=== PATIENT | male | born 1980 | race Caucasian/White ===

== ENCOUNTER 2018-12-29 08:38 | Outpatient (CLI) | payer BC, SELFPAY ==
--- NOTE | 2018-12-29 14:35 | W.PREOPHP ---
Documented by User: SOCORRO Greene 12/29/18 15:35 Date of service: 12/29/18 Time of Service: 08:36 Assessment and Plan (1) H/O arthroscopy of knee: Current visit: Yes Status: Resolved (2) Lateral Retinacular Release, Open: Current visit: Yes Status: Resolved (3) Right knee pain: Current visit: Yes Status: Acute The patient will undergo a diagnostic arthroscopy with likely meniscal root repair on 01/04/2019. A brief overview of the surgical procedure was again reviewed with Michell and his . 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 He notes an inability to twist on a planted foot with an inability to run that involves any cutting that makes it very difficult to perform his job activities. He notes pain with any squatting or any kneeling with decreased range of motion of his knee at the end of the day secondary to swelling. He also notes difficulty going down stairs and climbing hills. He has had injective therapy in the past that provided very limited relief may be 3 weeks. An MRI has been done which shows his ACL to be beat up with his lateral meniscal root insertion looking irregular and unstable. Dr. Quach has advised a diagnostic arthroscopy with a likely meniscal root repair of his lateral meniscus in this patient with a very elevated BMI Pertinent Surgical Information Denies previous medical history of: stroke, TIA, [place], use of sublingual nitroglycerin, GERD, seizures, diabetes, thyroid disease, sleep apnea, liver disease, hepatitis, hematologic disorders Denies previous complications from surgery or anesthesic agents with respect to high fever, prolonged vomiting and difficulty waking up Review of Systems Constitutional Denies fever(s) and Denies headache(s) ENT Denies headache(s), Denies nasal congestion, Denies nasal discharge and Denies sore throat Cardiovascular Denies chest pain, Denies chest pain with activity, Denies palpitations, Denies dyspnea on exertion, Denies orthopnea and Denies paroxysmal nocturnal dyspnea Respiratory Denies cough, Denies excessive phlegm production, Denies pain on inspiration, Denies dyspnea on exertion and Denies wheezing Gastrointestinal Denies abdominal pain, Denies melena, Denies hematochezia, Denies nausea and Denies vomiting Genitourinary Denies hematuria, Denies dysuria and Denies urinary frequency Comments: Denies burning sensation with urination Musculoskeletal Reports as per HPI Neurologic Denies headache(s) Psychiatric Denies anxiety and Denies depression Endocrine Denies palpitations Comments: Denies any unplanned weight changes Allergic/Immunologic Denies wheezing PFSH Medical History Body mass index (BMI) greater than or equal to 40 in adult (Chronic) ACL tear Diverticulitis large intestine w/o perforation or abscess w/o bleeding Seasonal allergies Surgical History H/O arthroscopy of knee (Resolved) Lateral Retinacular Release, Open (Resolved) Repair, ACL (Resolved) Colonoscopy - MAC (01/26/17) Family History Grandmother Diabetes Essential hypertension Heart disease Grandmother Diabetes Social History Smoking/Tobacco Use Status: Never Alcohol Intake: current Alcohol Intake frequency: a few times a month Details: light-mod,few /month Drug use: Never Substance use type: does not use Adopted: No Caregiver/Support person: Yes Household members: spouse Duration: 30-45 minutes/day Frequency: 1-2 times per week Special an needs: No Do you feel safe in your relationship?: Yes Meds Allergies Allergy/AdvReac Type Severity Reaction Status Date / Time sertraline AdvReac Intermediate Skin Rash Verified 12/29/18 08:49 DUST Allergy Intermediate Uncoded 12/29/18 08:49 Exam Const General: cooperative HENPA Throat: posterior oropharynx normal Eyes General: appearance normal, both eyes and all related structures Conjunctivae: conjunctivae normal Sclera: sclerae normal Neck Neck: no JVD Carotids: normal carotid upstroke and no bruits Resp Effort & Inspection: normal respiratory effort and able to speak in complete sentences Auscultation: clear to auscultation bilaterally, no rales, no rhonchi and no wheezes Cardio Rate: regular rate Heart Sounds: S1 normal, S2 normal and no murmurs Bruits: no abdominal aortic bruits GI Palpation: soft and no hepatosplenomegaly Auscultation: normal bowel sounds General: No CVA tenderness Extrem General: no pedal edema Other: right knee shows posterolateral tenderness to palpation.full extension intact with flexion to 110 degrees this early in day before swelling has begun to occurwith no large effusion evident yet. Documented by User: James Quach MD 12/31/18 08:10 PFSH Medical History Body mass index (BMI) greater than or equal to 40 in adult (Chronic) ACL tear Diverticulitis large intestine w/o perforation or abscess w/o bleeding Seasonal allergies Surgical History H/O arthroscopy of knee (Resolved) Lateral Retinacular Release, Open (Resolved) Repair, ACL (Resolved) Colonoscopy - MAC (01/26/17) Family History Grandmother Diabetes Essential hypertension Heart disease Grandmother Diabetes Social History Smoking/Tobacco Use Status: Never Alcohol Intake: current Alcohol Intake frequency: a few times a month Details: light-mod,few /month Drug use: Never Substance use type: does not use Adopted: No Caregiver/Support person: Yes Household members: spouse Duration: 30-45 minutes/day Frequency: 1-2 times per week Special an needs: No Do you feel safe in your relationship?: Yes Meds Allergies Allergy/AdvReac Type Severity Reaction Status Date / Time sertraline AdvReac Intermediate Skin Rash Verified 12/29/18 08:49 DUST Allergy Intermediate Uncoded 12/29/18 08:49
--- NOTE | 2018-12-29 15:22 | HPE_ITS ---
Documented by User: SOCORRO Greene 12/29/18 15:35 Date of service: 12/29/18 Time of Service: 08:36 Assessment and Plan (1) H/O arthroscopy of knee: Current visit: Yes Status: Resolved (2) Lateral Retinacular Release, Open: Current visit: Yes Status: Resolved (3) Right knee pain: Current visit: Yes Status: Acute The patient will undergo a diagnostic arthroscopy with likely meniscal root repair on 01/04/2019. A brief overview of the surgical procedure was again reviewed with Michell and his . 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 He notes an inability to twist on a planted foot with an inability to run that involves any cutting that makes it very difficult to perform his job activities. He notes pain with any squatting or any kneeling with decreased range of motion of his knee at the end of the day secondary to swelling. He also notes difficulty going down stairs and climbing hills. He has had injective therapy in the past that provided very limited relief may be 3 weeks. An MRI has been done which shows his ACL to be beat up with his lateral meniscal root insertion looking irregular and unstable. Dr. Quach has advised a diagnostic arthroscopy with a likely meniscal root repair of his lateral meniscus in this patient with a very elevated BMI Pertinent Surgical Information Denies previous medical history of: stroke, TIA, [place], use of sublingual nitroglycerin, GERD, seizures, diabetes, thyroid disease, sleep apnea, liver disease, hepatitis, hematologic disorders Denies previous complications from surgery or anesthesic agents with respect to high fever, prolonged vomiting and difficulty waking up Review of Systems Constitutional Denies fever(s) and Denies headache(s) ENT Denies headache(s), Denies nasal congestion, Denies nasal discharge and Denies sore throat Cardiovascular Denies chest pain, Denies chest pain with activity, Denies palpitations, Denies dyspnea on exertion, Denies orthopnea and Denies paroxysmal nocturnal dyspnea Respiratory Denies cough, Denies excessive phlegm production, Denies pain on inspiration, Denies dyspnea on exertion and Denies wheezing Gastrointestinal Denies abdominal pain, Denies melena, Denies hematochezia, Denies nausea and Denies vomiting Genitourinary Denies hematuria, Denies dysuria and Denies urinary frequency Comments: Denies burning sensation with urination Musculoskeletal Reports as per HPI Neurologic Denies headache(s) Psychiatric Denies anxiety and Denies depression Endocrine Denies palpitations Comments: Denies any unplanned weight changes Allergic/Immunologic Denies wheezing PFSH Medical History Body mass index (BMI) greater than or equal to 40 in adult (Chronic) ACL tear Diverticulitis large intestine w/o perforation or abscess w/o bleeding Seasonal allergies Surgical History H/O arthroscopy of knee (Resolved) Lateral Retinacular Release, Open (Resolved) Repair, ACL (Resolved) Colonoscopy - MAC (01/26/17) Family History Grandmother Diabetes Essential hypertension Heart disease Grandmother Diabetes Social History Smoking/Tobacco Use Status: Never Alcohol Intake: current Alcohol Intake frequency: a few times a month Details: light-mod,few /month Drug use: Never Substance use type: does not use Adopted: No Caregiver/Support person: Yes Household members: spouse Duration: 30-45 minutes/day Frequency: 1-2 times per week Special an needs: No Do you feel safe in your relationship?: Yes Meds Allergies Allergy/AdvReac Type Severity Reaction Status Date / Time sertraline AdvReac Intermediate Skin Rash Verified 12/29/18 08:49 DUST Allergy Intermediate Uncoded 12/29/18 08:49 Exam Const General: cooperative HENWV Throat: posterior oropharynx normal Eyes General: appearance normal, both eyes and all related structures Conjunctivae: conjunctivae normal Sclera: sclerae normal Neck Neck: no JVD Carotids: normal carotid upstroke and no bruits Resp Effort & Inspection: normal respiratory effort and able to speak in complete sentences Auscultation: clear to auscultation bilaterally, no rales, no rhonchi and no wheezes Cardio Rate: regular rate Heart Sounds: S1 normal, S2 normal and no murmurs Bruits: no abdominal aortic bruits GI Palpation: soft and no hepatosplenomegaly Auscultation: normal bowel sounds General: No CVA tenderness Extrem General: no pedal edema Other: right knee shows posterolateral tenderness to palpation.full extension intact with flexion to 110 degrees this early in day before swelling has begun to occurwith no large effusion evident yet. Documented by User: James Quach MD 12/31/18 08:10 PFSH Medical History Body mass index (BMI) greater than or equal to 40 in adult (Chronic) ACL tear Diverticulitis large intestine w/o perforation or abscess w/o bleeding Seasonal allergies Surgical History H/O arthroscopy of knee (Resolved) Lateral Retinacular Release, Open (Resolved) Repair, ACL (Resolved) Colonoscopy - MAC (01/26/17) Family History Grandmother Diabetes Essential hypertension Heart disease Grandmother Diabetes Social History Smoking/Tobacco Use Status: Never Alcohol Intake: current Alcohol Intake frequency: a few times a month Details: light-mod,few /month Drug use: Never Substance use type: does not use Adopted: No Caregiver/Support person: Yes Household members: spouse Duration: 30-45 minutes/day Frequency: 1-2 times per week Special an needs: No Do you feel safe in your relationship?: Yes Meds Allergies Allergy/AdvReac Type Severity Reaction Status Date / Time sertraline AdvReac Intermediate Skin Rash Verified 12/29/18 08:49 DUST Allergy Intermediate Uncoded 12/29/18 08:49
== END 2018-12-29 08:58 ==
PROVIDERS: PCP Emergency Medicine; Visit Provider Student in an Organized Health Care Education/Training Program
DX: Z01.818 Encounter for other preprocedural examination (principal)

== ENCOUNTER 2019-01-04 07:47 | Day surgery (SDC) | payer BC, SELFPAY ==
[2019-01-04 08:04] VITALS: BP 147/71; PULSE 65; RESP 18; TEMP 36.7; O2SAT 96
[2019-01-04] MEDS: Lactated Ringers 1,000 ML 80 ML IV (08:56)
[2019-01-04] MEDS: Gabapentin 300 MG CAP PO (09:24)
[2019-01-04] MEDS: Acetaminophen 500 MG TAB 1000 MG PO (09:24)
[2019-01-04] MEDS: oxyCODONE-CR 10 MG TABCR PO (09:24)
[2019-01-04] MEDS: Celecoxib 200 MG CAP 400 MG PO (09:24)
[2019-01-04] MEDS: Bupivacaine 0.5% Pres-Free 30 ML VIAL (11:00)
[2019-01-04 11:15] VITALS: BP 146/79; PULSE 72; RESP 24; TEMP 36.7; O2SAT 95
[2019-01-04 11:20] VITALS: BP 158/79; PULSE 66; RESP 14; TEMP 36.7; O2SAT 93
[2019-01-04 11:25] VITALS: BP 163/74; PULSE 67; RESP 13; TEMP 36.7; O2SAT 92
--- NOTE | 2019-01-04 11:30 | W.PM.DSUDISC ---
Discharge Plan Disposition Patient Disposition: HOME Condition: Good Discharge Details Reason For Visit: (R) KNEE MENISCUS TEAR Attending Provider: James Quach Primary Care Provider: Rick Jules Home Meds and New Rx's Prescriptions: New acetaminophen 500 mg tablet 1,000 mg PO Q8H PRN (Reason: pain) Qty: 90 RF: 3 ibuprofen 600 mg tablet 600 mg PO TID PRNQty: 90 RF: 3 oxycodone 5 mg tablet 5 mg PO Q4H Qty: 12 RF: 0 Discontinued hydrocodone-acetaminophen 5-325 mg tablet 1 tab PO DAILY PRN MDD 5mg PRN (Reason: pain) Qty: 10 RF: 0 Discharge Instructions Stand Alone Forms: [facility]th[facility] Referrals: James Quach MD [ [facility] - Equipment/Supplies: Partial Weight Bearing Crutches Activity:: Elevate Remove Dressings/Wound Care:: 72 hours Shower/Bathe:: 72 hours Diet:: As Tolerated Discharge Orders Discharge Orders: Discharge Order (Routine); Ordered 01/04/19 Ordered By: James Quach DS: Diagnosis Discharge Diagnosis (1) Chondromalacia, right knee: Status: Acute
--- NOTE | 2019-01-04 11:34 | PDOC.DSDIS_ITS ---
Discharge Plan Disposition Patient Disposition: HOME Condition: Good Discharge Details Reason For Visit: (R) KNEE MENISCUS TEAR Attending Provider: James Quach Primary Care Provider: Rick Jules Home Meds and New Rx's Prescriptions: New acetaminophen 500 mg tablet 1,000 mg PO Q8H PRN (Reason: pain) Qty: 90 RF: 3 ibuprofen 600 mg tablet 600 mg PO TID PRNQty: 90 RF: 3 oxycodone 5 mg tablet 5 mg PO Q4H Qty: 12 RF: 0 Discontinued hydrocodone-acetaminophen 5-325 mg tablet 1 tab PO DAILY PRN MDD 5mg PRN (Reason: pain) Qty: 10 RF: 0 Discharge Instructions Stand Alone Forms: [facility] Referrals: James Quach MD [ [facility] STAFF PHYSICIAN] - Equipment/Supplies: Partial Weight Bearing Crutches Activity:: Elevate Remove Dressings/Wound Care:: 72 hours Shower/Bathe:: 72 hours Diet:: As Tolerated Discharge Orders Discharge Orders: Discharge Order (Routine); Ordered 01/04/19 Ordered By: James Quach DS: Diagnosis Discharge Diagnosis (1) Chondromalacia, right knee: Status: Acute
[2019-01-04 11:39] VITALS: BP 143/84; PULSE 69; RESP 14; TEMP 36.5; O2SAT 94
[2019-01-04 12:24] VITALS: BP 130/79; PULSE 65; RESP 16; TEMP 35.6; O2SAT 94
[2019-01-04] MEDS: oxyCODONE 5 MG TAB PO (12:43)
--- NOTE | 2019-01-05 07:50 | ROE_ITS ---
Date of service: 01/04/19 Time of Service: 14:45 Operative Note DATE OF PROCEDURE: 01/04/19 PRE-OP DIAGNOSIS: Right knee medial meniscal tear POST-OP DIAGNOSIS: other (Right knee chondromalacia with loose cartilage flaps) PROCEDURE: Right knee arthroscopic chondroplasty of the medial compartment SURGEON: James Quach ANESTHESIA: GETA ESTIMATED BLOOD LOSS: 0 PATHOLOGY: none sent COMPLICATIONS: None Patient was transported to: PACU Patient's condition: stable Indications: I have seen Danny in clinic for symptoms of a meniscus tear. There appeared to be some tearing of the meniscal root on MRI without overwhelming signs of arthritic change. Nonoperative measures were exhausted but disability and pain persisted. I discussed knee arthroscopy with meniscal intervention with the patient. I reviewed the risks of the procedure to include, but not limited to, bleeding, infection, pain, stiffness, damage to nerves or vessels, recurrence, blood clot. Despite these risks, the patient elected to proceed. Findings: A diagnostic arthroscopy was performed with the following findings: Suprapatellar Pouch: No significant inflammation, no loose bodies Medial Compartment: No meniscal tear, intact meniscal root, grade IV chondromalacia over the medial half of the distal femur with loose cartilage flaps which were easily displaceable, fissuring of the tibial cartilage surface with grade II chondromalacia otherwise Notch: ACL and PCL were intact Lateral Compartment: No meniscal tear, intact meniscal root, some areas of grade I/II chondromalacia but overall no significant global change, no loose bodies Patellofemoral Compartment: Grade IV chondromalacia within the trochlea and grade II over the patellar apex, no apparent patellar maltracking Procedure Description: Danny was greeted in the preoperative holding area where the correct side was identified and marked. The consent was reviewed with the patient and signed. The history and physical was updated. All questions were answered. Danny was taken back to the operating room. The patient was placed into the supine position on the operating room table. A nonsterile tourniquet was placed high onto the leg but not used. All bony prominences were well padded. Prophylactic antibiotics in the form of cefazolin were administered. The right leg was then prepped with Chloraprep and draped in a standard fashion with stockinette and extremity drape. A timeout to confirm correct identity, side and site, procedure, allergies, anesthesia, and medical concerns was performed. The leg was placed into a pneumatic leg mason, [id number]. A standard lateral portal was made at the lateral border of the patella tendon in line with the inferior pole of the patella, soft spot. The skin and deep tissue was incised sharply and the blunt trochar was inserted atraumatically. A diagnostic arthroscopy was performed and the findings are listed above. The suprapatellar pouch had no significant inflammatory change. The patellofemoral articulation showed severe damage to the trochlea with grade IV chondromalacia, exposed bone, within the central portion of the trochlea. There was good tracking but also some grade II chondromalacia over the patellar apex. The lateral gutter had no loose bodies and the medial gutter had no loose bodies. The knee was brought into some valgus stress in extension to open the medial compartment. A medial portal was made, localized by a spinal needle. The portal was created with an # 11 blade through skin and capsule under direct visualization avoiding any meniscal injury. A probe was then inserted into the medial compartment. The medial compartment was fully inspected. The chondral surface of the tibia showed some fissuring and focal grade 1 changes and the surface of the femur showed a large stripe of grade IV chondromalacia with exposed bone. Immediately adjacent to this area was also loose pieces of cartilage which had no support to the underlying subchondral bone and were easily displaceable. This area measured approximately 8 mm in mediolateral dimension and nearly 15 or so millimeters from anterior to posterior. The medial meniscus had no meniscal tear. Cartilage surfaces were debrided of any flaps, leaving any intact fibers. The notch was then inspected which showed an intact ACL and an intact PCL. The leg was then brought into a figure of 4 position. The lateral compartment was fully inspected with the arthroscope and a probe. The chondral surface of the lateral femur showed no significant chondromalacia. The chondral surface of the lateral tibia showed very minor chondromalacial changes. The lateral meniscus had no meniscal tear. The arthroscope was brought back into the suprapatellar pouch and the leg was in full extension. The knee was thoroughly irrigated with the arthroscopic fluid on high flow and pressure. Inflow was stopped and excess fluid was removed. The wounds were closed with 4-0 Nylon. They were dressed with Xeroform, 4x4 gauze, ABD pad, Kerlix and an KISHAN wrap. A cryo-cuff was applied. The patient tolerated the procedure well and was returned to the Same Day Surgery area in a stable condition suffering no known complication.
== END 2019-01-04 13:36 | disposition home or self-care (01) ==
PROVIDERS: PCP Emergency Medicine; Visit Provider Student in an Organized Health Care Education/Training Program
PROC: (CPT 29870; principal; 2019-01-04 10:00)
DX: S83.241A Other tear of medial meniscus, current injury, right knee, initial encounter; M94.261 Chondromalacia, right knee; X58.XXXA Exposure to other specified factors, initial encounter
CPT/HCPCS: 29877; J0690; J1100; J1885; J2250; J2405

== ENCOUNTER 2019-08-27 13:44 | Emergency (ER) | payer BC, SELFPAY ==
[2019-08-27 13:55] VITALS: BP 151/92; PULSE 71; RESP 14; TEMP 36.8; O2SAT 94
--- NOTE | 2019-08-27 13:58 | DI.RAD_ITS ---
EXAM: XR FOOT LT COMPLETE INDICATION: foot pain after basketball injury. COMPARISON: No exams were available for comparison TECHNIQUE: 2D digital imaging was performed. FINDINGS: No acute fracture or dislocation is present. The soft tissues are unremarkable. IMPRESSION: No acute abnormality.
--- NOTE | 2019-08-27 14:07 | ED.GENADUL_ITS ---
Discharge Plan Disposition Patient Disposition: HOME Condition: Stable Discharge Details Chief Complaint: Orthopedic Clinical Impression: Strain of foot, left Primary Care Provider: Rick Jules ED Provider: Zhao Briceno Home Meds and New Rx's Prescriptions: Continued acetaminophen 500 mg tablet 1,000 mg PO Q8H PRN (Reason: pain) Qty: 90 RF: 3 ibuprofen 600 mg tablet 600 mg PO TID PRNQty: 90 RF: 3 Discharge Instructions Additional Instructions: Wear the walking boot while awake and out of bed. May remove for bathing and sleeping. May elevate leg without boot and apply ice to reduce pain/discomfort. Return for worsening discomfort or any other acute concerns. As we discussed. Please call the orthopedic office for a follow-up appointment. The office #[phone].. Medical Decision Making 39-year-old male presents from home with his . 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 He describes left foot pain since jumping off the back door of the school bus during a drill few weeks ago. It was exacerbated both by some movements during gym class as well as when walking in the [employer] season today. He is tender at the distal plantar surface. No significant pain with piano schafer movement of the toes. His exam is otherwise unremarkable. Must rule out fracture. Would consider mild Lisfranc injury or foot strain. Patient referred for x-ray which does not show acute fracture, no malalignment. Case discussed briefly with Dr. Driver. Will place in walking boot with follow- up in orthopedics for recheck given concern for foot sprain versus possible Lisfranc injury. HPI General Mode of arrival: ambulatory . Date/Time Provider Initiated Documentation: 08/27/19 13:47 . Limitations to Documentation: no limitations . Information obtained by: patient and family . History of Present Illness 39 year old M presents to the emergency department with the chief complaint of Left foot pain since jumping off a school bus weeks ago, worse today, described as mild, Quality is described as dull, and is localized to the lower extremity. Patient reports no radiation. Patient started experiencing this day(s) and it has been intermittent. No relieving factors improve symptom(s), No exacerbating factors reported . Patient notes no other symptoms.. Patient did receive the following treatments prior to arrival, other (Rest, ice.) Related Data Home Medications Medication Instructions Recorded Confirmed acetaminophen 1,000 mg PO Q8H PRN #90 tab 01/04/19 08/27/19 ibuprofen 600 mg PO TID PRN #90 tab 01/04/19 08/27/19 Previous Rx's Medication Instructions Recorded acetaminophen 1,000 mg PO Q8H PRN #90 tab 01/04/19 ibuprofen 600 mg PO TID PRN #90 tab 01/04/19 Allergies Allergy/AdvReac Type Severity Reaction Status Date / Time sertraline AdvReac Intermediate Skin Rash Verified 08/27/19 13:58 DUST Allergy Intermediate Uncoded 08/27/19 13:58 General Stated Complaint: Orthopedic CONNIE: 4 Review of Systems Narrative: Worse when walking in the weathers today. Denies numbness or tingling. No other injury. He has not noticed any bruising. 4 systems reviewed and otherwise negative [facility] Medical History ACL tear Body mass index (BMI) greater than or equal to 40 in adult (Chronic) Diverticulitis large intestine w/o perforation or abscess w/o bleeding Seasonal allergies Family History Grandmother Diabetes Essential hypertension Heart disease Grandmother Diabetes Social History Smoking/Tobacco Use Status: Never Alcohol Intake: current Alcohol Intake frequency: a few times a month Details: light-mod,few /month Drug use: Never Substance use type: does not use Adopted: No Caregiver/Support person: Yes Household members: spouse 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 Pleasant, well groomed, interactive. HEAD: Normocephalic, atraumatic ENT: Mucous membranes moist, oropharynx unremarkable, External ear exam unremarkable EYES: PERRL, EOMI EXT: Full ROM, no edema, no rash. Left spout tender distal plantar surface at d istal portion of metatarsals. Full range of motion. Sensation intact throughout no significant pain with piano schafer movement of the toes, no plantar ecchymosis. Neuro: Grossly normal neurologic exam, conversant, interactive. Psych: Speech fluent, thoughts congruent, affect normal Course Vital Signs Vital signs: Vital Signs Temperature 36.8 C 08/27/19 13:55 Pulse 71 08/27/19 13:55 Respiratory Rate 14 08/27/19 13:55 Blood Pressure 151/92 H 08/27/19 13:55 Pulse Oximetry 94 L 08/27/19 13:55 Temperature 36.8 C 08/27/19 13:55 Temperature Source Temporal Artery Scan 08/27/19 13:55 Pulse 71 08/27/19 13:55 Respiratory Rate 14 08/27/19 13:55 Respiratory Effort Non-Labored 08/27/19 13:57 Blood Pressure 151/92 H 08/27/19 13:55 Blood Pressure Position Sitting 08/27/19 13:55 Pulse Oximetry 94 L 08/27/19 13:55 Oxygen Delivery Method Room Air 08/27/19 13:55 Oxygen Flow Rate 0 08/27/19 13:55 Pain Level 5 08/27/19 13:55
--- NOTE | 2019-08-27 14:56 | DI.VRAD_ITS ---
PROCEDURE INFORMATION: Exam: XR Left Foot Complete Exam date and time: 08/27/2019 2:37 PM Clinical history: 39 years old, male; Pain; Foot; Left TECHNIQUE: Imaging protocol: XR Left foot. Views: 3 or more views. COMPARISON: No relevant prior studies available. FINDINGS: Bones/joints: There is no evidence of acute fracture.There is no evidence of malalignment or dislocation. Soft tissues: Normal. IMPRESSION: There is no evidence of acute fracture.There is no evidence of malalignment or dislocation. Dictated and Authenticated by: Shila Sandhu MD. Ordering:DEJON Churchill MD
== END 2019-08-27 15:20 | disposition home or self-care (01) ==
PROVIDERS: Emergency Provider Emergency Medicine; PCP Emergency Medicine
DX: S96.912A Strain of unspecified muscle and tendon at ankle and foot level, left foot, initial encounter (principal); X50.1XXA Overexertion from prolonged static or awkward postures, initial encounter
CPT/HCPCS: 29515; 99283; 73630; 99282; L4361

== ENCOUNTER 2020-05-15 08:55 | Outpatient (REF) | payer BC, SELFPAY ==
[2020-05-15 14:49] LABS: Hemoglobin A1C 5.3 % (3.8-5.6)
[2020-05-15 14:52] LABS: Calculated LDL 130 mg/dL (<100); Cholesterol 198 mg/dL (<200); HDL Cholesterol 38 mg/dL (40-60); Triglyceride 154 mg/dL (<150)
== END 2020-05-15 09:15 ==
LOC: LBN 08:55
PROVIDERS: PCP Emergency Medicine; Visit Provider Emergency Medicine
DX: E11.9 Type 2 diabetes mellitus without complications (principal); E66.9 Obesity, unspecified
CPT/HCPCS: 80061; 83036

== ENCOUNTER 2020-09-07 09:24 | Outpatient (CLI) | payer BC, SELFPAY ==
[2020-09-10 17:37] LABS: Patient Race White; SARS-CoV-2 RNA Undetected (Undetected); SARS-CoV-2 Specimen Source Nasal
== END 2020-09-07 09:44 ==
PROVIDERS: PCP Emergency Medicine; Visit Provider Emergency Medicine
DX: Z11.59 Encounter for screening for other viral diseases (principal)
CPT/HCPCS: U0003

== ENCOUNTER 2021-09-07 18:08 | Emergency (ER) | payer BC, SELFPAY ==
[2021-09-07 18:11] VITALS: BP 181/89; PULSE 79; RESP 16; TEMP 36.7; O2SAT 97
--- NOTE | 2021-09-07 18:15 | DI.RAD_ITS ---
Exam(s) XR KNEE RT 3V AP,LAT,EVELINA EXAM: XR KNEE RT 3V AP,LAT,EVELINA CLINICAL HISTORY: Pain, TECHNIQUE: COMPARISON: CR RIGHT KNEE 3 VIEWS from 11/09/2017 FINDINGS: Three views were obtained. There is a small to moderate-sized knee joint effusion. The cartilaginou s joint spaces appear fairly well maintained. Mild marginal osteophyte formation noted at all 3 join ts. No other significant bony or soft tissue abnormality seen. IMPRESSION: Mild DJD and joint effusion noted. RADIATION DOSE DELIVERED: Total DLP
--- NOTE | 2021-09-07 18:24 | ED.GENADUL_ITS ---
Discharge Plan Disposition Patient Disposition: HOME Condition: Stable Discharge Details Clinical Impression: Right knee sprain Primary Care Provider: Rick Jules ED Provider: Corina Aguilar Home Meds and New Rx's Prescriptions: No Action acetaminophen 500 mg tablet 1,000 mg PO Q8H PRN (Reason: pain) Qty: 90 RF: 3 ibuprofen 600 mg tablet 600 mg PO TID PRNQty: 90 RF: 3 Discharge Instructions Instructions: Knee Sprain (ED) Additional Instructions: We will call you with x-ray result. Wear immobilizer as tolerated, weight bearing as tolerated. Please follow up with Orthopedics in next 1-2 weeks or sooner if worsening. You were placed on a care management list and they will call you for an appointment. Rest, ice, compression, elevation. Please take Tylenol or Ibuprofen with food every 4-6 hours as needed for pain and swelling. Follow up with primary care provider in 3-5 days if needed. Return to ED sooner if any worsening or concerns. Increase oral fluids. Referrals: Rick Jules DO [Primary Care Provider] - James Quach MD [ [facility] STAFF PHYSICIAN] - 1 week Medical Decision Making XR ordered. Imaging protocol: XR Right knee. Views: 3 views. COMPARISON: MRI R LOWER JOINT WO CONT 01/13/2018 10:58 AM FINDINGS: Bones/joints: There is a small to moderate-sized joint effusion. New lines there is early hypertrophic spurring at the superior aspect of the patella. Bone density and bony alignment are appropriate. Soft tissues: Normal. IMPRESSION: Joint effusion. Thank you for allowing us to participate in the care of your patient. Dictated and Authenticated by: Nancy Raya MD Patient given a knee immobilizer he reports that he does have crutches at home. Instructed to follow-up with orthopedics in place of a care management list he verbalized understanding. Instructed on RICE procedures and follow-up care to wear splint as tolerated weightbearing as tolerated. Patient and family verbalized understanding. This text was generated using [employer] system, please disregard any oddities of phrase or missp ellings. HPI General Mode of arrival: ambulatory . Date/Time Provider Initiated Documentation: 09/07/21 18:13 . Limitations to Documentation: no limitations . Information obtained by: patient, RN notes reviewed and old records reviewed . HPI Narrative: 41-year-old male presents to the ER chief complaint of right knee pain status post walking up some stairs at a football game prior to arrival. Patient reports that he got almost the top of some bleachers when he felt a snap and had increased right knee pain. He reports pain worse with weightbearing and with extension. Denies any pain at rest. He does have a history per patient report of left ACL tear and repair. He did take 2 Aleve prior to arrival approximately 1 hour ago. He has no obvious deformity on initi al exam distal pulses intact distal CMS intact. Related Data Home Medications Medication Instructions Recorded Confirmed acetaminophen 1,000 mg PO Q8H PRN #90 tab 01/04/19 09/07/21 ibuprofen 600 mg PO TID PRN #90 tab 01/04/19 09/07/21 Previous Rx's Medication Instructions Recorded acetaminophen 1,000 mg PO Q8H PRN #90 tab 01/04/19 ibuprofen 600 mg PO TID PRN #90 tab 01/04/19 Allergies Allergy/AdvReac Type Severity Reaction Status Date / Time sertraline AdvReac Intermediate Skin Rash Verified 09/07/21 18:15 DUST Allergy Intermediate Uncoded 09/07/21 18:15 General Stated Complaint: Orthopedic CONNIE: 4 Review of Systems All systems reviewed & are unremarkable except as noted in HPI and below Musculoskeletal Musculoskeletal: Reports as per HPI, Denies deformity, Reports arthralgias (Right knee) and Denies loss of height [facility] Active Problem List (Updated 09/07/21 @ 20:26 by Corina Aguilar) Right knee sprain (Acute) Injury of left foot (Acute 08/27/19) History of surgical procedure (Acute) Status post repair of anterior cruciate ligament (Acute) Status post arthroscopy of right knee (Chronic) Right knee pain (Acute) Post-traumatic osteoarthritis of left knee (Acute 04/09/16) Obesity (Acute) Hyperlipidemia (Acute) Diverticulosis (Acute 01/26/17) Diverticulitis of large intestine (Acute 12/23/16) Medical History (Updated 09/07/21 @ 20:26 by Corina Aguilar) ACL tear Body mass index (BMI) greater than or equal to 40 in adult Diverticulitis large intestine w/o perforation or abscess w/o bleeding Seasonal allergies Surgical History Colonoscopy - [facility] (01/26/17) [place] [facility] [place] Grandmother Diabetes Essential hypertension Heart disease Grandmother Diabetes Social History Smoking/Tobacco Use Status: Never Smoking risk assessment performed?: Yes Alcohol Intake: current Alcohol Intake frequency: holidays/special occasions only Details: light-mod,few /month Drug use: Never Substance use type: does not use Adopted: No Caregiver/Support person: Yes Household members: spouse 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 Duration: 30-45 minutes/day Frequency: 1-2 times per week Special an needs: No Do you feel safe at home: Yes Do you feel safe in your relationship?: Yes Exam Extrem Right lower extremity: normal to inspection, normal capillary refill, no joint enlargement and knee (No significant effusion no obvious deformity noted) Details: normal to inspection and knee ligament exam normal Details: anterior drawer test normal and posterior drawer test normal; Pam's Test not performed; no edema Course Vital Signs Vital signs: Vital Signs Temperature 36.7 C 09/07/21 18:11 Pulse 79 09/07/21 18:11 Respiratory Rate 16 09/07/21 18:11 Blood Pressure 181/89 H 09/07/21 18:11 Pulse Oximetry 97 09/07/21 18:11 Temperature 36.7 C 09/07/21 18:11 Pulse 79 09/07/21 18:11 Respiratory Rate 16 09/07/21 18:11 Respiratory Effort Non-Labored 09/07/21 18:14 Blood Pressure 181/89 H 09/07/21 18:11 Blood Pressure Position Sitting 09/07/21 18:11 Pulse Oximetry 97 09/07/21 18:11 Oxygen Delivery Method Room Air 09/07/21 18:11 Oxygen Flow Rate 0 09/07/21 18:11 Pain Level 9 09/07/21 18:11
--- NOTE | 2021-09-07 20:42 | DI.VRAD_ITS ---
PROCEDURE INFORMATION: Exam: XR Right Knee Exam date and time: 09/07/2021 6:21 PM Age: 41 years old Clinical indication: Other: Pain TECHNIQUE: Imaging protocol: XR Right knee. Views: 3 views. COMPARISON: MRI R LOWER JOINT WO CONT 01/13/2018 10:58 AM FINDINGS: Bones/joints: There is a small to moderate-sized joint effusion. New lines there is early hypertrophic spurring at the superior aspect of the patella. Bone density and bony alignment are appropriate. Soft tissues: Normal. IMPRESSION: Joint effusion. Dictated and Authenticated by: Nancy Raya MD. Ordering:LANEY Arriaga MD
== END 2021-09-07 20:33 | disposition home or self-care (01) ==
PROVIDERS: Emergency Provider Registered Nurse Emergency; PCP Emergency Medicine
DX: S83.8X1A Sprain of other specified parts of right knee, initial encounter (principal); X50.1XXA Overexertion from prolonged static or awkward postures, initial encounter
CPT/HCPCS: 29505; 73562; 99283; 99282

== ENCOUNTER 2023-08-07 14:38 | Observation (INO) | payer OTHER, SELFPAY ==
[2023-08-07] VITALS (32 sets, daily range): BP systolic 143–184; BP diastolic 74–110; PULSE 53–90; RESP 11–21; TEMP 35.9–37.5; O2SAT 88–97
--- NOTE | 2023-08-07 15:15 | DI.CT_ITS ---
Exam(s) CT NECK W CT FACIAL W EXAM: CT NECK W and CT facial W CLINICAL HISTORY: infection. TECHNIQUE: Imaging Protocol: Axial computed tomography images with coronal and sagittal reformatted images were created and reviewed. CONTRAST MATERIAL: Intravenous: Omnipaque 350 Contrast volume:100mL COMPARISON: CT CT FACIAL W from 08/07/2023 FINDINGS: The examination is limited due to patient motion artifact. Orbits and orbital soft tissues: Within normal limits. Visualized paranasal sinuses: There is opacification of a few ethmoid air cells. Small mucous reten tion cysts or polyps are seen in the maxillary sinuses bilaterally. The remaining visualized paranas al sinuses are clear as are the mastoid air cells. Nasopharynx: Within normal limits. Oropharynx: There is enlargement of the right tonsils with loss of the parapharyngeal fat planes. No drainable fluid collection is identified. There is edema seen in the soft tissues in this region ex tending into the right submandibular region. There is no significant narrowing of the airway. Hypopharynx: Within normal limits. Larynx: Within normal limits. Retropharyngeal space: Within normal limits. Parotids/submandibular: Within normal limits. There is mild infiltration of the soft tissues around the right submandibular gland. Thyroid gland: Within normal limits. Lymphadenopathy: Mildly enlarged lymph nodes are seen in the right submandibular region which are li scott reactive. Trachea: Within normal limits. Lung apices: Within normal limits. Bones: Within normal limits for the patient's age. Carotids/Jugular: Within normal limits. Soft tissues: There is infiltration of the soft tissues in the neck left greater than right. There is mild thickening of the right platysma muscle. IMPRESSION: 1. There is mild swelling of the soft tissues in the right tonsillar region with edema seen in the so ft tissues of the submandibular region. No focal fluid collection is seen to suggest an abscess. Th ere is no significant narrowing of the airway at this time. There is subcutaneous edema in the right neck with mild thickening of the platysma muscle. Reactive lymph nodes are seen in the right neck. 2. Findings were discussed with Dr. Trevino at 5:10 p.m. on 08/07/2023. RADIATION DOSE DELIVERED: Total DLP Total DLP DATA REPOSITORY: All CT scans at this facility are submitted to the National Radiology Data Registry (NRDR) Dose Index Registry (DIR) with the [employer] (ACR). RADIATION OPTIMIZATION: All CT scans at this facility use at least one of these dose optimization te chniques: automated exposure control; mA and/or kV adjustment per patient size (includes targeted exa ms where dose is matched to clinical indication); or iterative reconstruction.
--- NOTE | 2023-08-07 15:28 | ED.GENADUL_ITS ---
Discharge Plan Disposition Patient Disposition: Admit to [facility] Condition: Serious Discharge Details Clinical Impression: Increased anion gap metabolic acidosis, Dental infection Primary Care Provider: Piter Chi ED Provider: Good Trevino Home Meds and New Rx's Prescriptions: No Action clindamycin HCl 300 mg capsule 300 mg PO QID acetaminophen-codeine 300-30 mg tablet 1 tab PO TID MDD 30mg PRN (Reason: pain) Qty: 10 0RF acetaminophen 500 mg tablet 1,000 mg PO Q8H PRN (Reason: pain) Qty: 90 3RF ibuprofen 600 mg tablet 600 mg PO TID PRNQty: 90 3RF Medical Decision Making 3:32 PM??43-year-old male here 3 days status post right lower molar dental extraction, on clindamycin for the past 5 days, now with increasing pain and swelling. Patient does have trismus on exam. No appreciable fluctuance right gumline. He does have facial swelling and submandibular swelling. I am concerned about the potential for progression to Anahi's angina. I will initiate IV antibiotics immediately with ampicillin-sulbactam 3 g. Patient does have significant pain and I will treat with Dilaudid IV. IV fluid to be initiated. 5:12 PM --Labs reviewed and mild leukocytosis noted. CT of the face and neck interpreted by radiology: Inflammation is present with no focal collection, airway intact. Plan to admit to hospitalist service for IV antibiotics. -- I spoke to the hospitalist, Dr. Cox, discussed ED presentation course, she will admit the patient. Lab Data Lab results reviewed: Yes I reviewed the patient's lab results. Labs: 08/07/23 15:50 Blood Blood Culture - Pending 08/07/23 15:20 Blood Blood Culture - Pending Laboratory Tests Range/Units 08/07/23 08/07/23 15:20 15:30 WBC (4.4-10.8) 10^3/uL 10.86 H RBC (4.36-5.78) 10^6/uL 5.41 Hgb (13.5-17.5) g/dL 15.2 Hct (40.0-50.0) % 45.5 MCV (80-95) fL 84 MCH (27.0-33.0) pg 28.1 MCHC (32.0-36.0) % 33.4 RDW (11.8-14.1) % 12.3 Plt Count (130-400) 10^3/uL 266 MPV (8.0-11.0) fL 9.7 Immature Gran % 0.4 Neutrophils % 75.8 Lymphocytes % 15.4 Monocytes % 6.3 Eosinophils % 1.7 Basophils % 0.4 Nucleated RBC % (0.0-0.3) % 0.0 Absolute Neutrophils (1.2-6.7) 10^3/uL 8.23 H Absolute Lymphocytes (1.2-3.4) 10^3/uL 1.67 Absolute Monocytes (0.1-0.8) 10^3/uL 0.68 Absolute Eosinophils (0.0-0.7) 10^3/uL 0.18 Absolute Basophils (0.0-0.2) 10^3/uL 0.04 VBG Lactate (0.6-1.4) mmol/L 0.9 Sodium (136-145) mmol/L 140 Potassium (3.5-5.1) mmol/L 3.9 Chloride (98-107) mmol/L 100 Carbon Dioxide (21.0-32.0) mmol/L 27.7 Anion Gap (3-11) mmol/L 12.3 H BUN (7-18) mg/dL 13 Creatinine (0.70-1.30) mg/dL 1.0 Est GFR (CKD-EPI 2020) (mL/min/1.73m2) 95.18 Glucose (74-106) mg/dL 96 Calcium (8.5-10.1) mg/dL 9.9 Total Bilirubin (0.2-1.0) mg/dL 0.5 AST (15-37) U/L 22 ALT (16-63) U/L 41 Alkaline Phosphatase (46-116) U/L 75 Total Protein (6.4-8.2) g/dL 9.2 H Albumin (3.4-5.0) g/dL 4.2 Procalcitonin ng/mL < 0.1 COVID-19 Source Nasal/Nares SARS-CoV-2 (PCR) (Negative) Negative HPI General Mode of arrival: ambulatory . Date/Time Provider Initiated Documentation: 08/07/23 15:10 . Limitations to Documentation: no limitations . Information obtained by: patient . HPI Narrative: 43-year-old male presents with chief complaint of dental infection. Patient notes he started to have dental pain in his right lower molar last week. He was seen by his dentist and found to have a cracked molar. He had a minor dental procedure last week. On Thursday, pain and swelling significantly increased and he was started on clindamycin. He was seen 3 days ago by his dentist and had dental extraction of right lower molar. Clindamycin was continued. He notes initially he had some improvement in pain and swelling. Today pain and swelling increasing and he is having difficulty opening his mouth. He had associated sweats earlier today. Pain is moderate to severe. Pain worse with attempting to open his mouth. He continues to have facial swelling that extends down into his neck. Patient was seen by [facility] today and sent to the ED for further evaluation. Related Data Home Medications Medication Instructions Recorded Confirmed acetaminophen 500 mg tablet 1,000 mg (2 x 500 mg) PO Q8H PRN 01/04/19 08/07/23 pain #90 tabs ibuprofen 600 mg tablet 600 mg PO TID PRN #90 tabs 01/04/19 08/07/23 acetaminophen 300 mg-codeine 30 mg 1 tab PO TID PRN pain #10 tabs 08/03/23 08/07/23 tablet clindamycin HCl 300 mg capsule 300 mg PO QID 08/07/23 08/07/23 Previous Rx's Medication Instructions Recorded acetaminophen 500 mg tablet 1,000 mg (2 x 500 mg) PO Q8H PRN 01/04/19 pain #90 tabs ibuprofen 600 mg tablet 600 mg PO TID PRN #90 tabs 01/04/19 acetaminophen 300 mg-codeine 30 mg 1 tab PO TID PRN pain #10 tabs 08/03/23 tablet Allergies Allergy/AdvReac Type Severity Reaction Status Date / Time sertraline AdvReac Intermediate Skin Rash Verified 08/07/23 14:48 DUST Allergy Intermediate Uncoded 08/07/23 14:48 General Stated Complaint: DentalOral CONNIE: 3 Review of Systems All systems reviewed & are unremarkable except as noted in HPI and below Constitutional Constitutional: Reports as per HPI ENT Ears, Nose, Mouth, and Throat: Reports as per HPI PFSH All Active Problems (Updated 08/07/23 @ 17:15 by Good Trevino MD) Dental infection (Acute) Increased anion gap metabolic acidosis (Acute) Osteoarthritis of right knee (Acute) Right knee sprain (Acute) Right knee pain (Acute) Injection: 02/07/19 Obesity (Acute) Hyperlipidemia (Acute) Diverticulosis (Acute 01/26/17) Diverticulitis of large intestine (Acute 12/23/16) Medical History Body mass index (BMI) greater than or equal to 40 in adult Seasonal allergies ACL tear Diverticulitis large intestine w/o perforation or abscess w/o bleeding Surgical History Status post repair of anterior cruciate ligament Status post arthroscopy of right knee Chondroplasty of medial compartment DOS: 01/04/19 Dr. Quach Repair, ACL [facility] Lateral Retinacular Release, Open Colonoscopy - [facility] [place] (01/26/17) Family History Grandmother Diabetes Essential hypertension Heart disease Grandmother Diabetes Social History Smoking/Tobacco Use Status: Never Second Hand Exposure: Yes Smoking risk assessment performed?: Yes Alcohol Intake: current Alcohol Intake frequency: holidays/special occasions only Details: light-mod,few /month Drug use: Never Substance use type: does not use Adopted: No Caregiver/Support person: No Household members: spouse and children Housing: house Do you need help understanding health information?: Never 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 Pets and animals: Yes Pets and animals: dog(s) Sexually active: Yes Do you think of yourself as: straight/heterosexual Current gender identity: male Duration: 30-45 minutes/day Frequency: 1-2 times per week Special an needs: No Do you feel safe at home: Yes Do you feel safe in your relationship?: Yes Exam Const General: cooperative and no acute distress HENMT Face and sinus: edema on the right mandible and submandibular, no fluctuance and tenderness on the right mandible Mouth: moist mucous membranes and other (Limited exam, no fluctuance along gumline on right) Other: Patient does have trismus and unable to visualize posterior oropharynx Eyes EOM: EOM intact bilaterally Neck Neck: trachea midline and supple Resp Auscultation: clear to auscultation bilaterally, no rales, no rhonchi and no wheezes Cardio Rate: regular rate and not tachycardic Rhythm: regular rhythm GI Palpation: soft, not firm, no guarding, no masses, not rigid and nontender Skin General skin exam: no rashes or lesions noted Neuro General: patient alert, patient awake, patient oriented x3 and tone normal Extrem General: no edema Psych Appearance: grossly normal Mental Status: mental status grossly normal Speech and Movement: speech and movement normal Course Vital Signs Vital signs: Vital Signs Temperature 36.6 C 08/07/23 14:43 Pulse 53 L 08/07/23 14:43 Respiratory Rate 17 08/07/23 14:43 Blood Pressure 173/103 H 08/07/23 14:43 Pulse Oximetry 94 08/07/23 14:43 Temperature 36.9 C 08/07/23 15:06 Temperature Source Oral 08/07/23 15:06 Pulse 53 L 08/07/23 14:43 Respiratory Rate 20 08/07/23 15:06 Respiratory Effort Normal 08/07/23 14:47 Blood Pressure 153/85 H 08/07/23 15:06 Blood Pressure Position Sitting 08/07/23 14:43 Pulse Oximetry 94 08/07/23 15:06 Oxygen Delivery Method Room Air 08/07/23 15:06 Oxygen Flow Rate 0 08/07/23 14:43 Pain Level 7 08/07/23 15:06 Lab/Test Results Lab/Test Results: 08/07/23 15:23 Blood Blood Culture - Pending 08/07/23 15:23 Blood Blood Culture - Pending PAWSS Have you Been Recently Intoxicated or Drunk Within the Last 30 days?: No Have you Ever Experienced Previous Episodes of Alcohol Withdrawal?: No Have you ever Experienced Withdrawal Seizures?: No Have you ever Experienced Delirium Tremens(DT)s?: No Have you ever undergone Alcohol Rehabilitation Treatment (i.e, inpt ot outpatient treatment programs)?: No Have you ever Experienced Blackouts?: No Have you ever Combined Alcohol with other Downers within the last 90 days?: No Have you ever Combined Alcohol with any other Substance of Abuse during the last 90 days?: No Result: 0
[2023-08-07 15:31] LABS: Abs Immature Grans 0.04 10^3/uL (0.0-0.06); Absolute Basophil Count 0.04 10^3/uL (0.0-0.2); Absolute Lymphocyte Count 1.67 10^3/uL (1.2-3.4); Absolute Monocyte Count 0.68 10^3/uL (0.1-0.8); Basophils % 0.4; Eosinophils % 1.7; HCT 45.5 % (40.0-50.0); HGB 15.2 g/dL (13.5-17.5); Immature Grans % 0.4; Lactate 0.9 mmol/L (0.6-1.4); Lymphocytes % 15.4; MCH 28.1 pg (27.0-33.0); MCHC 33.4 % (32.0-36.0); MCV 84 fL (80-95); MPV 9.7 fL (8.0-11.0); Monocytes % 6.3; Neutrophils % 75.8; Platelet Count 266 10^3/uL (130-400); RBC 5.41 10^6/uL (4.36-5.78); RDW 12.3 % (11.8-14.1); RDW-SD 37.3 fL; WBC 10.86 10^3/uL (4.4-10.8)
[2023-08-07 15:33] LABS: Source Nasal/Nares
[2023-08-07 15:35] LABS: Absolute Eosinophil Count 0.18 10^3/uL (0.0-0.7); Absolute Neutrophil Count 8.23 10^3/uL (1.2-6.7)
[2023-08-07 15:49] LABS: ALT 41 U/L (16-63); AST 22 U/L (15-37); Albumin 4.2 g/dL (3.4-5.0); Alkaline Phosphatase 75 U/L (46-116); Anion Gap 12.3 mmol/L (3-11); BUN 13 mg/dL (7-18); Bilirubin, Total 0.5 mg/dL (0.2-1.0); CO2 27.7 mmol/L (21.0-32.0); Calcium 9.9 mg/dL (8.5-10.1); Chloride 100 mmol/L (98-107); Estimated GFR 95.18 (mL/min/1.73m2); Glucose 96 mg/dL (74-106); Potassium 3.9 mmol/L (3.5-5.1); Sodium 140 mmol/L (136-145); Total Protein 9.2 g/dL (6.4-8.2)
[2023-08-07 16:04] LABS: Procalcitonin < 0.1 ng/mL
[2023-08-07 16:05] LABS: COVID-19 PCR Negative (Negative)
[2023-08-07] MEDS: AMPICILLIN/SULBACTAM 3 GM in Normal Saline 100 ML IVPB ×2 (16:11→23:05)
[2023-08-07] MEDS: HYDROmorphone 2 MG/ML SYR 0.5 MG IVP (16:12)
[2023-08-07] MEDS: Lactated Ringers 500 ML 1000 ML IV (16:13)
[2023-08-07] MEDS: Omnipaque 350 MG/ML 100 ML BTL IJ (16:53)
[2023-08-07] MEDS: HYDROmorphone 2 MG/ML SYR 1 MG IVP (17:12)
--- NOTE | 2023-08-07 17:35 | W.PM.HP.N ---
Date of service: 08/07/23 Time of Service: 17:35 Assessment and Plan Assessment and plan (1) Dental infection: Status: Acute Assessment and plan: referred to observation for IV antibiotics. continue unasyn as initiated in the ED. pain management plan dental outpatient follow up as previously arranged. no chemical DVT prophylaxis indication in obs, 43 year old ambulatory patient. anticipate discharge to home tomorrow with no services. discussed with DR Cox. History of Present Illness History of Present Illness Chief Complaint: dental pain Narrative: Started with right lower dental pain on Thursday was able to get in with his dentist on Thursday who started him on clindamycin he was referred for dental extraction which occurred on Thursday. Continued to have ongoing pain and swelling after dental extraction was referred here to the emergency department work-up shows no drainable abscess. He was placed on Unasyn Review of Systems All systems reviewed & are unremarkable except as noted in HPI and below PFSH All Active Problems (Updated 08/07/23 @ 17:15 by Good Trevino MD) Dental infection (Acute) Increased anion gap metabolic acidosis (Acute) Osteoarthritis of right knee (Acute) Right knee sprain (Acute) Right knee pain (Acute) Injection: 02/07/19 Obesity (Acute) Hyperlipidemia (Acute) Diverticulosis (Acute 01/26/17) Diverticulitis of large intestine (Acute 12/23/16) Medical History Body mass index (BMI) greater than or equal to 40 in adult Seasonal allergies ACL tear Diverticulitis large intestine w/o perforation or abscess w/o bleeding Surgical History Status post repair of anterior cruciate ligament Status post arthroscopy of right knee Chondroplasty of medial compartment DOS: 01/04/19 Dr. Quach Repair, [place] [facility] Lateral Retinacular Release, Open Colonoscopy - 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 Pets and animals: Yes Pets and animals: dog(s) Sexually active: Yes Do you think of yourself as: straight/heterosexual Current gender identity: male Duration: 30-45 minutes/day Frequency: 1-2 times per week Special an needs: No Do you feel safe at home: Yes Do you feel safe in your relationship?: Yes Meds Allergies and Home Medications Allergies Allergy/AdvReac Type Severity Reaction Status Date / Time sertraline AdvReac Intermediate Skin Rash Verified 08/07/23 14:48 DUST Allergy Intermediate Uncoded 08/07/23 14:48 Home Medications Medication Instructions Recorded Confirmed Type acetaminophen 500 mg tablet 1,000 mg (2 x 500 mg) PO Q8H PRN 01/04/19 08/07/23 Rx pain #90 tabs ibuprofen 600 mg tablet 600 mg PO TID PRN #90 tabs 01/04/19 08/07/23 Rx acetaminophen 300 mg-codeine 30 mg 1 tab PO TID PRN pain #10 tabs 08/03/23 08/07/23 Rx tablet clindamycin HCl 300 mg capsule 300 mg PO QID 08/07/23 08/07/23 History Exam Const General: in distress moderate Nutritional Appearance: obese Orientation: alert, awake and oriented x3 HENMT Head: normal to inspection, normocephalic and atraumatic Face and sinus: no ecchymosis and edema on the right Mouth: oral mucosae normal, no drooling and restricted motion Teeth and gingiva: fair dentition Teeth image: 1. Extracted no obvious drainable abscess, Chest Chest: normal inspection of the chest Resp Effort & Inspection: normal respiratory effort Cardio Rate: regular rate Rhythm: regular rhythm Skin General skin exam: no rashes or lesions noted Extrem General: normal to inspection and full ROM Results Labs 08/07/23 15:20 08/07/23 15:20 Labs: Laboratory Results - last 24 hr 08/07/23 08/07/23 15:20 15:30 WBC 10.86 H RBC 5.41 Hgb 15.2 Hct 45.5 MCV 84 MCH 28.1 MCHC 33.4 RDW 12.3 Plt Count 266 MPV 9.7 Immature Gran % 0.4 Neutrophils % 75.8 Lymphocytes % 15.4 Monocytes % 6.3 Eosinophils % 1.7 Basophils % 0.4 Nucleated RBC % 0.0 Absolute Neutrophils 8.23 H Absolute Lymphocytes 1.67 Absolute Monocytes 0.68 Absolute Eosinophils 0.18 Absolute Basophils 0.04 VBG Lactate 0.9 Sodium 140 Potassium 3.9 Chloride 100 Carbon Dioxide 27.7 Anion Gap 12.3 H BUN 13 Creatinine 1.0 Est GFR (CKD-EPI 2020) 95.18 Glucose 96 Calcium 9.9 Total Bilirubin 0.5 AST 22 ALT 41 Alkaline Phosphatase 75 Total Protein 9.2 H Albumin 4.2 Procalcitonin < 0.1 COVID-19 Source Nasal/Nares SARS-CoV-2 (PCR) Negative Last Vital Signs Temp 36.9 C 08/07/23 15:06 Pulse 83 08/07/23 17:16 Resp 12 08/07/23 17:16 BP 158/89 H 08/07/23 17:16 Pulse Ox 95 08/07/23 17:16 PAWSS Have you Been Recently Intoxicated or Drunk Within the Last 30 days?: No Have you Ever Experienced Previous Episodes of Alcohol Withdrawal?: No Have you ever Experienced Withdrawal Seizures?: No Have you ever Experienced Delirium Tremens(DT)s?: No Have you ever undergone Alcohol Rehabilitation Treatment (i.e, inpt ot outpatient treatment programs)?: No Have you ever Experienced Blackouts?: No Have you ever Combined Alcohol with other Downers within the last 90 days?: No Have you ever Combined Alcohol with any other Substance of Abuse during the last 90 days?: No Result: 0 Time Spent Time spent with Patient: <40 minutes Time was spent: preparing to see the patient(eg.review tests), obtaining and/or reviewing separately otained hiistory, ordering medications,tests, procedures and indepentently interpreting results
[2023-08-07] MEDS: Acetaminophen 500 MG TAB 1000 MG PO (19:39)
[2023-08-07] MEDS: Normal Saline Flush 10 ML SYR IVP ×2 (19:40→23:05)
[2023-08-07] MEDS: Ketorolac 30 MG/ML VIAL IVP (19:44)
[2023-08-07] MEDS: Zolpidem 5 MG TAB PO (20:27)
[2023-08-08] MEDS: Normal Saline Flush 10 ML SYR IVP ×8 (00:38→22:09)
[2023-08-08] MEDS: HYDROmorphone 2 MG/ML SYR 0.5 MG IVP ×4 (00:39→22:09)
[2023-08-08] MEDS: Ketorolac 30 MG/ML VIAL IVP ×3 (03:15→19:18)
[2023-08-08] MEDS: AMPICILLIN/SULBACTAM 3 GM in Normal Saline 100 ML IVPB ×4 (05:12→21:05)
[2023-08-08] MEDS: Acetaminophen 500 MG TAB 1000 MG PO ×3 (07:44→19:17)
[2023-08-08 08:04] VITALS: BP 153/83; PULSE 80; RESP 20; TEMP 37.6; O2SAT 95
[2023-08-08 15:26] VITALS: BP 125/79; PULSE 82; RESP 18; TEMP 37.5; O2SAT 93
--- NOTE | 2023-08-08 15:56 | W.PM.PROGNOT ---
Date of Service Date of service: 08/08/23 Time of Service: 15:56 Assessment and Plan Assessment and plan (1) Dental infection: Status: Acute Assessment and plan: slowly responding, will continue unasyn day 2 as initiated in the ED. pain management plan dental outpatient follow up as previously arranged. no chemical DVT prophylaxis indication in obs, 43 year old ambulatory patient. anticipate discharge to home tomorrow with no services. discussed with DR Cox. Subjective Subjective Patient reports: pain is less, tolerating liquids well, tolerating a regular diet and afebrile Exam Const General: in distress moderate Nutritional Appearance: obese Orientation: alert, awake and oriented x3 HENMT Head: normal to inspection, normocephalic and atraumatic Mouth: oral mucosae normal Teeth and gingiva: fair dentition Resp Effort & Inspection: normal respiratory effort Cardio Rate: regular rate Rhythm: regular rhythm Skin General skin exam: no rashes or lesions noted Extrem General: normal to inspection and full ROM Objective Last Vital Signs Temp 37.5 C 08/08/23 15:26 Pulse 82 08/08/23 15:26 Resp 18 08/08/23 15:26 BP 125/79 08/08/23 15:26 Pulse Ox 93 08/08/23 15:26 Laboratory Results - last 24 hr 08/07/23 08/07/23 08/07/23 15:20 15:30 17:45 Procalcitonin < 0.1 COVID-19 Source Cancelled SARS-CoV-2 (PCR) Negative Cancelled PAWSS Have you Been Recently Intoxicated or Drunk Within the Last 30 days?: No Have you Ever Experienced Previous Episodes of Alcohol Withdrawal?: No Have you ever Experienced Withdrawal Seizures?: No Have you ever Experienced Delirium Tremens(DT)s?: No Have you ever undergone Alcohol Rehabilitation Treatment (i.e, inpt ot outpatient treatment programs)?: No Have you ever Experienced Blackouts?: No Have you ever Combined Alcohol with other Downers within the last 90 days?: No Have you ever Combined Alcohol with any other Substance of Abuse during the last 90 days?: No Result: 0 Time Spent with Patient Time Spent with Patient: 25-34 minutes Time was spent: preparing to see the patient(eg.review tests), obtaining and/or reviewing separately otained hiistory, ordering medications,tests, procedures and indepentently interpreting results
--- NOTE | 2023-08-08 17:51 | PDOC.CMIN ---
Date of service: 08/08/23 Time of Service: 17:51 Care Management Initial Assmt Initial Assessment REASON FOR HOSPITALIZATION:: dental infection PREVIOUS FUNCTIONAL STATUS/SOCIAL/FAMILY SUPPORTS:: Danny lives in [place] with his , Justina. 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 He is independent at baseline. CURRENT FUNCTIONAL STATUS:: Danny was sitting up in bed when CM met with him. His was in the room, visiting. He stated that he feels better today, but that per [employer], he will remain overnight for continued IV antibiotic treatment. He was hoping to return home, but is comfortable staying hospitalized. He reported that he is independent in the community, and does not require community supports upon discharge. CM will continue to follow. ADVANCE DIRECTIVES:: Not on file. Has patient been provided with info about the portal/API?: Yes Did the patient sign up for the portal?: No CODE STATUS:: Full Code INSURANCE COVERAGE / FINANCIAL ISSUES:: [employer]; this is a recent change, as he is now employed by . He reported that he provided a copy of his insurance card to the access department upon admission. CURRENT HOME/COMMUNITY SERVICES/EQUIPMENT:: None. PRIMARY CARE PHYSICIAN:: Piter Chi POTENTIAL DISCHARGE NEEDS:: Follow up appointments. PATIENT/FAMILY EDUCATION NEEDS:: Review discharge instructions and limitations, discussion of self care needs including ask me three. ANTICIPATED BARRIERS TO DISCHARGE:: None. TRANSPORTATION:: Via private vehicle by his . PLAN:: Anticipate Danny will return home once medically cleared. His will drive him home via private vehicle. He will follow up with his PCP and discharge plan of care. CM will continue to follow. [facility] All Active Problems (Updated 08/07/23 @ 17:15 by Good Trevino MD) Dental infection (Acute) Increased anion gap metabolic acidosis (Acute) Osteoarthritis of right knee (Acute) Right knee sprain (Acute) Right knee pain (Acute) Injection: 02/07/19 Obesity (Acute) Hyperlipidemia (Acute) Diverticulosis (Acute 01/26/17) Diverticulitis of large intestine (Acute 12/23/16) Medical History Body mass index (BMI) greater than or equal to 40 in adult Seasonal allergies ACL tear Diverticulitis large intestine w/o perforation or abscess w/o bleeding Surgical History Status post repair of anterior cruciate ligament Status post arthroscopy of right knee Chondroplasty of medial compartment DOS: 01/04/19 Dr. Quach Repair, ACL [facility] [place] Lateral Retinacular Release, Open Colonoscopy - [facility] [place] (01/26/17) Family History Grandmother Diabetes Essential hypertension Heart disease Grandmother Diabetes Social History Smoking/Tobacco Use Status: Never Second Hand Exposure: Yes Smoking risk assessment performed?: Yes Alcohol Intake: current Alcohol Intake frequency: holidays/special occasions only Details: light-mod,few /month Drug use: Never Substance use type: does not use Adopted: No Caregiver/Support person: No Household members: spouse and children Housing: house Do you need help understanding health information?: Never 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
[2023-08-08] MEDS: Melatonin 3 MG TAB PO (21:04)
[2023-08-08 21:17] VITALS: BP 138/84; PULSE 76; RESP 18; TEMP 37; O2SAT 94
[2023-08-09] MEDS: Normal Saline Flush 10 ML SYR IVP ×3 (02:41→09:40)
[2023-08-09] MEDS: Ketorolac 30 MG/ML VIAL IVP ×2 (02:41→08:38)
[2023-08-09] MEDS: AMPICILLIN/SULBACTAM 3 GM in Normal Saline 100 ML IVPB ×2 (03:27→09:39)
[2023-08-09 06:22] LABS: Abs Immature Grans 0.06 10^3/uL (0.0-0.06); Absolute Basophil Count 0.05 10^3/uL (0.0-0.2); Absolute Eosinophil Count 0.26 10^3/uL (0.0-0.7); Absolute Lymphocyte Count 1.37 10^3/uL (1.2-3.4); Absolute Neutrophil Count 4.38 10^3/uL (1.2-6.7); Basophils % 0.7; Eosinophils % 3.9; HCT 37.7 % (40.0-50.0); HGB 12.5 g/dL (13.5-17.5); Immature Grans % 0.9; Lymphocytes % 20.4; MCH 28.3 pg (27.0-33.0); MCHC 33.2 % (32.0-36.0); MCV 85 fL (80-95); MPV 9.8 fL (8.0-11.0); Monocytes % 8.9; Neutrophils % 65.2; Platelet Count 206 10^3/uL (130-400); RBC 4.42 10^6/uL (4.36-5.78); RDW-SD 37.6 fL; WBC 6.72 10^3/uL (4.4-10.8)
[2023-08-09 06:53] LABS: Anion Gap 6.2 mmol/L (3-11); BUN 9 mg/dL (7-18); CO2 28.8 mmol/L (21.0-32.0); CREATININE 0.8 mg/dL (0.70-1.30); Chloride 105 mmol/L (98-107); Estimated GFR 111.92 (mL/min/1.73m2); Glucose 99 mg/dL (74-106); Potassium 3.9 mmol/L (3.5-5.1); Sodium 140 mmol/L (136-145)
[2023-08-09 07:45] VITALS: BP 153/93; PULSE 56; RESP 17; TEMP 36.7; O2SAT 100
[2023-08-09] MEDS: HYDROmorphone 2 MG/ML SYR 0.5 MG IVP (08:38)
[2023-08-09] MEDS: Acetaminophen 500 MG TAB 1000 MG PO (09:39)
--- NOTE | 2023-08-09 11:06 | W.PM.DS.N ---
Date of service: 08/09/23 Time of Service: 11:06 DS: Diagnosis Discharge Diagnosis (1) Dental infection: Status: Acute Asessment and Plan: responded to unasyn, will downstep to augmentin. follow up with oral surgeon outpatient this week. (2) Trismus: Status: Acute Asessment and Plan: from dental extraction. NSAIDS, warm and cold compress for comfort active jaw stretching exercises Discharge Plan Disposition Patient Disposition: Home Condition: Stable Discharge Details Reason For Visit: Dental Infection Admit Date/Time: 08/07/23 17:30 Admit Provider: Evangelina Cox Attending Provider: Evangelina Cox Primary Care Provider: Piter Chi Home Meds and New Rx's Prescriptions: New amoxicillin-pot clavulanate 875-125 mg tablet 1 tab PO BID Qty: 14 0RF tramadol 50 mg tablet 50 mg PO Q6H PRNQty: 10 0RF Continued acetaminophen-codeine 300-30 mg tablet 1 tab PO TID MDD 30mg PRN (Reason: pain) Qty: 10 0RF acetaminophen 500 mg tablet 1,000 mg PO Q8H PRN (Reason: pain) Qty: 90 3RF Changed ibuprofen 600 mg tablet 600 mg PO QID Qty: 90 3RF Discontinued clindamycin HCl 300 mg capsule 300 mg PO QID Discharge Instructions Instructions: Dental Abscess (ED), Temporomandibular Disorder (DC) Additional Instructions: Active Jaw Stretching Exercise These movements will stretch your jaw muscles, but shouldn?t cause pain. If you experience pain, do a restaurant crew member stretch.? Step 1: Hold your head still and open your mouth as wide as is comfortable for you. Hold for 10 seconds.? Step 2: Move your lower jaw to the left, hold for three seconds.? Step 3: Move your lower jaw to the right, hold for three seconds.? Step 4: Move your lower jaw in a little river to the left.? Step 5: Move your lower jaw in a little river to the right.? Repeat five times, and do these three times a day.? Passive Stretching Exercise This exercise is meant to lightly stretch your jaw muscles, to relieve trismus pain. ? Step 1: Put your thumb on your top teeth in the middle of your jaw.? Step 2: Put the index finger of your other hand on your bottom teeth in the middle of your jaw.? Step 3: Open your mouth as wide as possible, using your fingers to give extra resistance. Hold this stretch for five to 10 seconds. Stop if you feel pain.? Repeat this five times.? Chin Tucks? Keeping?good posture will help keep your neck and shoulders flexible This exercise will reduce tension and improve your movements. ? Step 1: While looking forward, pull your chin into your chest.? Step 2: Pull your head back to a resting position, so your ears are in line with your shoulders.? Hold this stretch for three seconds, repeat five times.? Stretching the neck is another way to improve posture and reduce tension in your neck and jaw muscles. Try this neck stretch to see if it helps:? Step 1: Bend your head forward then backward.? Step 2: Turn your head to the right and then the left.? Step 3: Slowly bend your head, pulling your ear to your shoulder while keeping your shoulder relaxed, as far as possible. Stop if you feel pain. Repeat on the other side.? Hold this stretch for 30 seconds, and repeat five times.? Stand Alone Forms: Nursing Discharge Form Referrals: Piter Chi [employer] PATTERN LAYOUT TECHNICIAN [Primary Care Provider] - Activity:: Activity as Tolerated Equipment/Supplies:: No Equipment Needed Diet:: As Tolerated Discharge Orders Discharge Orders: Discharge Order (Routine); Ordered 08/09/23 Ordered By: Anastasia Kilpatrick Discharge Data Discharge Date/Time-TO BE ENTERED AT DEPARTURE: 08/09/23 11:45 DS: Summary Time Spent with Patient providing and/or coordinating discharge services: Less than 30 minutes Status at Discharge Functional status at discharge: independent ambulation Overall status at discharge: patient is not back to baseline Mental Status: mental status grossly normal Speech and Movement: speech and movement normal Mood: congruent mood Affect: normal affect Exam Const General: in distress moderate Nutritional Appearance: obese Orientation: alert, awake and oriented x3 HENMT Head: normal to inspection, normocephalic and atraumatic Mouth: oral mucosae normal and trismus Teeth and gingiva: fair dentition Resp Effort & Inspection: normal respiratory effort Cardio Rate: regular rate Rhythm: regular rhythm Skin General skin exam: no rashes or lesions noted Extrem General: normal to inspection and full ROM Psych Mental Status: mental status grossly normal Speech and Movement: speech and movement normal Mood: congruent mood Affect: normal affect DS: Data Vitals/I&O Vitals and I&O: Vital Signs Temperature 36.7 C 08/09/23 07:45 Temperature Source Tympanic 08/09/23 07:45 Pulse 56 L 08/09/23 07:45 Pulse Rhythm Regular 08/08/23 22:29 Pulse 78 08/07/23 18:30 Respiratory Rate 17 08/09/23 07:45 Respiratory Effort Normal, Non-Labored 08/08/23 22:29 Respiratory Depth Normal 08/08/23 22:29 Respiratory Pattern Normal 08/08/23 22:29 Blood Pressure 153/93 H 08/09/23 07:45 Blood Pressure Mean 103 08/07/23 18:16 Blood Pressure Position Sitting 08/07/23 14:43 Pulse Oximetry 100 08/09/23 07:45 Oxygen Delivery Method Room Air 08/09/23 07:45 Oxygen Flow Rate 0 08/09/23 07:45 Pain Level 4 08/09/23 09:39 Intake & Output 08/08/23 08/08/23 08/09/23 11:59 23:59 11:59 Intake Total 220 / 540 320 / 540 200 / 200 Balance 220 / 540 320 / 540 200 / 200 Intake: IV 220 / 540 320 / 540 200 / 200 Other: Urine Appearance Clear Comment pT gets up to use bathroom independently. Voiding Methods Toilet Toilet Data Completed and Pending Labs on day of discharge: Labs from last 24 hours 08/09/23 05:58 WBC 6.72 RBC 4.42 Hgb 12.5 L D Hct 37.7 L MCV 85 MCH 28.3 MCHC 33.2 RDW 12.0 Plt Count 206 MPV 9.8 Immature Gran % 0.9 Neutrophils % 65.2 Lymphocytes % 20.4 Monocytes % 8.9 Eosinophils % 3.9 Basophils % 0.7 Nucleated RBC % 0.0 Absolute Neutrophils 4.38 Absolute Lymphocytes 1.37 Absolute Monocytes 0.60 Absolute Eosinophils 0.26 Absolute Basophils 0.05 Sodium 140 Potassium 3.9 Chloride 105 Carbon Dioxide 28.8 Anion Gap 6.2 BUN 9 Creatinine 0.8 Est GFR (CKD-EPI 2020) 111.92 Glucose 99 Calcium 9.0 Preliminary micro results at discharge 08/07/23 15:50 Blood Culture - Preliminary Blood NO GROWTH 24 HOURS 08/07/23 15:20 Blood Culture - Preliminary Blood NO GROWTH 24 HOURS PFSH All Active Problems (Updated 08/09/23 @ 11:07 by Anastasia Kilpatrick NP) Trismus (Acute) Dental infection (Acute) Increased anion gap metabolic acidosis (Acute) Osteoarthritis of right knee (Acute) Right knee sprain (Acute) Right knee pain (Acute) Injection: 02/07/19 Obesity (Acute) Hyperlipidemia (Acute) Diverticulosis (Acute 01/26/17) Diverticulitis of large intestine (Acute 12/23/16) Medical History Body mass index (BMI) greater than or equal to 40 in adult Seasonal allergies ACL tear Diverticulitis large intestine w/o perforation or abscess w/o bleeding Surgical History Status post repair of anterior cruciate ligament Status post arthroscopy of right knee Chondroplasty of medial compartment DOS: 01/04/19 Dr. Quach Repair, [place] [facility] [place]in[place], Open [place] - [facility] [place] (01/26/17) Family History Grandmother Diabetes Essential hypertension Heart disease Grandmother Diabetes Social History Smoking/Tobacco Use Status: Never Second Hand Exposure: Yes Smoking risk assessment performed?: Yes Alcohol Intake: current Alcohol Intake frequency: holidays/special occasions only Details: light-mod,few /month Drug use: Never Substance use type: does not use Adopted: No Caregiver/Support person: No Household members: spouse and children Housing: house Do you need help understanding health information?: Never 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
--- NOTE | 2023-08-09 15:24 | PDOC.CMDIS ---
Date of service: 08/09/23 Time of Service: 15:24 LACE Index Scoring Tool Questions: Length of Stay (in days): 2 Was the patient admitted via the E.D.?: Yes E.D. Visits: 0 Answers: Total Score: 5 Risk of Readmission: Low Risk Care Management Discharge Plan Reason for Hospitalization: dental infection Discharge Plan: Danny returned home today with no new services. His drove him home via private vehicle. He will follow up with his PCP and discharge plan of care. He is happy to be going home. Patient/Family Education Needs: Review discharge instructions and limitations, discussion of self care needs including ask me three.
== END 2023-08-09 11:45 | disposition home or self-care (01) ==
LOC: ER 17:55 → MS 19:11
PROVIDERS: Nurse Practitioner Acute Care; Admitting Provider Internal Medicine; Emergency Provider Student in an Organized Health Care Education/Training Program; PCP Nurse Practitioner Family; Visit Provider Internal Medicine
DX: K04.7 Periapical abscess without sinus (principal); E87.20 Acidosis, unspecified; M17.11 Unilateral primary osteoarthritis, right knee; E66.9 Obesity, unspecified; E78.5 Hyperlipidemia, unspecified; R25.2 Cramp and spasm; Z68.42 Body mass index [BMI] 45.0-49.9, adult
CPT/HCPCS: 00123; 36415; 70491; 80048; 80053; 84145; 87040; 87635; 96365; 96366; 96375; 96376; 99285; 70487; 83605; 85025; 99222; 99232; 99238; G0378; J0131; J0295; J1170; J1885; J3490

== ENCOUNTER 2024-08-19 01:59 | Outpatient (CLI) | payer OTHER, SELFPAY ==
[2024-08-19 08:20] LABS: Hemoglobin A1C 5.3 % (<5.7)
[2024-08-19 08:34] LABS: Calculated LDL 119 mg/dL (<100); Cholesterol 184 mg/dL (<200); HDL Cholesterol 39 mg/dL (40-60); TSH (W/Ref FT4) 3.12 uIU/mL (0.36-3.74); Triglyceride 131 mg/dL (<150)
== END 2024-08-19 02:00 | disposition home or self-care (01) ==
LOC: LBO 01:59
PROVIDERS: PCP Nurse Practitioner Family; Visit Provider Nurse Practitioner Family
DX: Z13.220 Encounter for screening for lipoid disorders (principal); Z13.1 Encounter for screening for diabetes mellitus; E66.9 Obesity, unspecified
CPT/HCPCS: 36415; 80061; 83036; 84443